=== PATIENT | male | born 1975 | race Hispanic/Latino ===

== ENCOUNTER 2020-07-15 09:58 | Emergency (ER) | payer SELFPAY ==
--- NOTE | 2020-07-15 10:37 | EDPHYS ---
Physician Documentation [facility] Name: Wilmer Dwyer Age: 44 yrs Sex: Male : 1975 Arrival Date: 07/15/2020 Time: 10:00 Bed 6 Private MD: ED Physician Dariusz Trujillo HPI: 07/15 10:36 This 44 yrs old Male presents to ER via Ambulatory with complaints of Arm Pain.kb 10:37 The patient or guardian complains of decreased range of motion, pain, tenderness. The kb complaints affect the left forearm. Context: The problem was sustained at home, resulted from a direct blow, from a heavy object. Onset: The symptoms/episode began/occurred 2 week(s) ago. Treatment prior to arrival includes: over the counter medications, NSAIDS. Modifying factors: The symptoms are alleviated by nothing. the symptoms are aggravated by movement. Associated signs and symptoms: Pertinent positives: decreased range of motion, pain. Severity of symptoms: At their worst the symptoms were moderate, in the emergency department the symptoms are unchanged. The patient has not experienced similar symptoms in the past. The patient has not recently seen a physician. Pt reports he hit his arm with a steel pipe 2 weeks ago. States the swelling got better, but the pain has been constant. Reports he felt a snap just below his elbow today. Pain with ROM. Historical: - Allergies: 10:09 No Known Allergies; sv - Immunization history:: Flu vaccine is up to date. - Social history:: Smoking status: Patient reports the use of cigarette tobacco products, smokes one-half pack cigarettes per day. ROS: 10:20 Constitutional: Negative for fever, chills, and weight loss, Cardiovascular: Negative kb for chest pain, palpitations, and edema, Respiratory: Negative for shortness of breath, cough, wheezing, and pleuritic chest pain, Abdomen/GI: Negative for abdominal pain, nausea, vomiting, diarrhea, and constipation, Skin: Negative for injury, rash, and discoloration, Neuro: Negative for headache, weakness, numbness, tingling, and seizure. 10:20 MS/extremity: Positive for decreased range of motion, pain, tenderness, of the left forearm. Exam: 10:20 Constitutional: This is a well developed, well nourished patient who is awake, alert, kb and in no acute distress. Head/Face: Normocephalic, atraumatic. Skin: Warm, dry with normal turgor. Normal color with no rashes, no lesions, and no evidence of cellulitis. Neuro: Awake and alert, GCS 15, oriented to person, place, time, and situation. Cranial nerves II-XII grossly intact. Motor strength 5/5 in all extremities. Sensory grossly intact. Cerebellar exam normal. Normal gait. 10:20 Respiratory: the patient does not display signs of respiratory distress, Respirations: normal. 10:20 Musculoskeletal/extremity: Extremities: grossly normal except: noted in the left forearm: decreased ROM, pain, tenderness, ROM: limited active range of motion due to pain, in the left forearm, Full ROM at joints without pain. Painful when rotating arm, Circulation is intact in all extremities. Sensation intact. Vital Signs: 10:07 Weight 83.46 kg; Height 5 ft. 6 in. (167.64 cm); sv 10:09 BP 145 / 97; Pulse 85; Resp 18; Temp 97.6; Pulse Ox 100% on R/A; ph 10:07 Body Mass Index 29.70 (83.46 kg, 167.64 cm) sv MDM: 10:03 Patient medically screened. kb 10:35 Data reviewed: vital signs, nurses notes. Data interpreted: Pulse oximetry: on room air kb is 100 %. Interpretation: normal. Counseling: I had a detailed discussion with the patient and/or guardian regarding: the historical points, exam findings, and any diagnostic results supporting the discharge/admit diagnosis, radiology results, the need for outpatient follow up, a orthopedic surgeon, to return to the emergency department if symptoms worsen or persist or if there are any questions or concerns that arise at home. 07/15 10:07 Order name: Forearm Left XRAY kb 07/15 10:36 Order name: Sling; Complete Time: 10:54 kb Administered Medications: No medications were administered Disposition: 12:09 Co-signature as Attending Physician, Dariusz Trujillo MD. rn Disposition: 07/15/20 10:36 Discharged to Home. Impression: Pain in left forearm. - Condition is Stable. - Discharge Instructions: Musculoskeletal Pain. - Prescriptions for Diclofenac Sodium 75 mg Oral Tablet, Delayed Release (E.C.) - take 1 tablet by ORAL route 2 times per day As needed; 30 tablet. - Medication Reconciliation Form, Thank You Letter, Antibiotic Education, Prescription Opioid Use, Work release form form. - Follow up: Emergency Department; When: As needed; Reason: Worsening of condition. Follow up: Private Physician; When: 2 - 3 days; Reason: Recheck today's complaints, Continuance of care, Re-evaluation by your physician. Signatures: Dispatcher [employer] ED Margaret Reza, KHOI-C TRACK LAYING SUPERVISOR-Shadb Sol Stuart RN Dariusz Tong MD MD rn Hall, Patricia, RN RN ph Corrections: (The following items were deleted from the chart) 10:54 10:36 07/15/2020 10:36 Discharged to Home. Impression: Pain in left forearm. Condition ph is Stable. Forms are Work release form, Medication Reconciliation Form, Thank You Letter, Antibiotic Education, Prescription Opioid Use. Follow up: Emergency Department; When: As needed; Reason: Worsening of condition. Follow up: Private Physician; When: 2 - 3 days; Reason: Recheck today's complaints, Continuance of care, Re-evaluation by your physician. kb
--- NOTE | 2020-07-15 10:37 | ER ---
Nurse's Notes [facility] Name: Wilmer Dwyer Age: 44 yrs Sex: Male : 1975 Arrival Date: 07/15/2020 Time: 10:00 Bed 6 Private MD: Diagnosis: Pain in left forearm Presentation: 07/15 10:07 Chief complaint: Patient states: had a solid piece of steel hit him on his left arm 2 sv wks ago. c/o pain and unable to car icer objects with his left hand. Coronavirus screen: Client denies travel out of the [place] in the last 14 days. At this time, the client does not indicate any symptoms associated with coronavirus-19. Ebola Screen: No symptoms or risks identified at this time. Risk Assessment: Do you want to hurt yourself or someone else? Patient reports no desire to harm self or others. Onset of symptoms was June 2020. 10:07 Method Of Arrival: Ambulatory sv 10:07 Acuity: JUAN RAMON 4 sv 10:12 Initial Sepsis Screen: Does the patient meet any 2 criteria? No. Patient's initial ph sepsis screen is negative. Does the patient have a suspected source of infection? No. Patient's initial sepsis screen is negative. Historical: - Allergies: 10:09 No Known Allergies; sv - Immunization history:: Flu vaccine is up to date. - Social history:: Smoking status: Patient reports the use of cigarette tobacco products, smokes one-half pack cigarettes per day. Screenin:10 Abuse screen: Denies threats or abuse. Nutritional screening: No deficits noted. tw2 Tuberculosis screening: No symptoms or risk factors identified. Fall Risk None identified. Assessment: 10:10 General: Appears in no apparent distress. comfortable, Behavior is calm, cooperative, ph appropriate for age. Pain: Complains of pain in dorsal aspect of left forearm. Neuro: Level of Consciousness is awake, alert, obeys commands, Oriented to person, place, time, situation. Cardiovascular: Capillary refill < 3 seconds in bilateral fingers Patient's skin is warm and dry. Respiratory: Airway is patent Respiratory effort is even, unlabored, Respiratory pattern is regular, symmetrical. Derm: Skin is intact, is healthy with good turgor, Skin is pink, warm \T\ dry. Musculoskeletal: Circulation, motion, and sensation intact. Range of motion: intact in all extremities. 10:20 Reassessment: xray at bedside at this time. tw2 Vital Signs: 10:07 Weight 83.46 kg; Height 5 ft. 6 in. (167.64 cm); sv 10:09 BP 145 / 97; Pulse 85; Resp 18; Temp 97.6; Pulse Ox 100% on R/A; ph 10:07 Body Mass Index 29.70 (83.46 kg, 167.64 cm) sv ED Course: 10:00 Patient arrived in ED. rg4 10:02 Margaret Reza FNP-C is PHCP. kb 10:02 Dariusz Trujillo MD is Attending Physician. kb 10:08 Bed in low position. Call light in reach. Pulse ox on. NIBP on. tw2 10:09 Triage completed. sv 10:09 Jeniffer Gardiner, RN is Primary Nurse. ph 10:09 Arm band placed on Patient placed in an exam room, on a stretcher. sv 10:27 Forearm Left XRAY In Process Unspecified. EDMS 10:54 No provider procedures requiring assistance completed. Patient did not have IV access ph during this emergency room visit. Sling applied to left arm. Administered Medications: No medications were administered Outcome: 10:36 Discharge ordered by MD. kb 10:54 Discharged to home ambulatory. ph 10:54 Condition: good 10:54 Discharge instructions given to patient, Instructed on discharge instructions, follow up and referral plans. medication usage, Demonstrated understanding of instructions, follow-up care, medications, Prescriptions given X 1. 10:54 Patient left the ED. ph Signatures: Dispatcher [employer] EDDE Margaret Reza FNP-C FNP-Ckb [place], Stephanie RN SHYANN Jeniffer Gardiner, RN RN ph Latrice Sawyer, RN RN [id number] Marimar Shipley rg4
--- NOTE | 2020-07-15 11:39 | RAD REPORT ---
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 FINDINGS: No fracture is identified. There is no dislocation or periosteal reaction noted. No foreign body or other soft tissue abnormality. IMPRESSION: Negative left forearm examination.
[2020-07-17 22:50] VITALS: BP 145/97; TEMP 97.6; O2SAT 100
== END 2020-07-15 10:54 | disposition home or self-care (01) ==
LOC: ER 09:58
DX: M79.632 Pain in left forearm (principal); F17.210 Nicotine dependence, cigarettes, uncomplicated
CPT/HCPCS: 99284

== ENCOUNTER 2021-09-05 12:50 | Emergency (ER) | payer SELFPAY ==
--- OUTSIDE RECORDS SUMMARY | 2021-09-05 12:53 | XMS REPORT | Continuity of Care Document ---
:1975 Author Organization [facility] t Address [address] [place] [address] Care Team Providers Name Role Phone Asked, Pcp Primary Care Physician Unavailable Eladio Hoffman Attending Clinician Unavailable Yessica English Attending Clinician Unavailable Physician, Primary or Family Admitting Clinician Unavaildelonte e Payers Payer Name Policy Type Policy Number Effective Date Expiration Date S ource Problems This patient has no known problems. Allergies, Adverse Reactions, Alerts Allergy Allergy Status Severity Reaction(s) Onset Inactive Treating Comm ents Source Name Type Date Date Clinician No Known DA Active U 2020-07 [facility] [place] [facility] 00:00: [address] No Known DA Active U [facility] 9 [facility] s 00:00: [address] No Known DA Active U 2014-07 [facility] 1-13 [place] [facility] 00:00: [address] Social History Social Habit Start Date Stop Date Quantity Comments Source History of tobacco Cigarette Smoker [facility] use Hospital Cigarettes smoked 2019-08-05 2019-08-[address] current (pack per 00:00:00 00:00:00 Hospita l day) - Reported Tobacco use and 2019-08-05 2019-08-05 Never used [facility] exposure 00:00:00 00:00:00 Hospital Alcohol intake 2019-08-05 2019-08-05 Current drinker Metho dist 00:00:00 00:00:00 of alcohol Hospital (finding) Tobacco Comment 2019-08-05 2019-08-05 "only 1 pack on Meth odist 00:00:00 00:00:00 the weekends" Hospital Alcohol Comment 2019-08-05 2019-08-05 social drinker Mariza dist 00:00:00 00:00:00 Hospital Sex Assigned At [birth year] [facility] 00:00:00 00:00:00 Hospital Smoking Status Start Date Stop Date Source Current some day smoker 2019-08-05 00:00:00 [facility] Medications Ordered Filled Start Stop Current Ordering Indication Dosage Frequency Signature Comments Components Source Medication Medication Date Date Medication? Clinician (SIG) Name Name No known No Methodi medications [facility]osp[facility] Procedures This patient has no known procedures. Plan of Care Planned Activity Planned Date Details Comments Source Future Scheduled Test COVID-19 VACCINE (1) [facility] [code = COVID-19 VACCINE (1)] Future Scheduled Test Hepatitis C screening [facility] (procedure) [code = 321565468] Future Scheduled Test INFLUENZA VACCINE [facility] [code = INFLUENZA VACCINE] Encounters Start End Encounter Admission Attending Care Care Encounter Source Date/Time Date/Time Type Type Clinicians Facility Department ID 2021-04-28 Inpatient [facility] [id number] [facility] 23:48:00 [id number] [facility] 2021-04-28 2021-04-29 Emergency [facility] [id number] [facility] 23:48:00 04:24:[address] [facility] 2021-04-09 2021-04-09 Emergency EM Am[place], [facility] ER [id number] [facility] 00:28:00 03:30:00 Andrea [id number] [facility] 2021-04-09 2021-04-09 Emergency EM [place], [facility] ER [id number] [id number] [facility] 00:28:00 03:30:00 Andrea [id number] [facility] 2021-04-09 2021-04-09 [id number] [facility] 00:28:00 03:30:00 Andrea Morrison [facility] Results Test Description Test Time Test Comments Results Result Comments Source TROPONIN-I 2021-04-29 03:25:00 Test Item Value Reference Range Interpretation Comme nts TROPONIN-I (test code = 5.9 pg/mL 3.0-78.5 N An e levated troponin value alone is TROPI) not sufficient todiagnose a myocardial infa rction. Rather, the patient'sclinic al presentation (history, physi kun exam) and ECGshould be us ed in conjuction with troponin in the diagnosticevaluation of suspected my ocaridal infarction. A serialsampling protocol is recommended to facilitate heidentificatio n of temporal changes in troponin lev elscharacteristic of AR. - CT ABD PELVIS [id number] 03:24:[address] [facility] [place] : 1975 Sex: M [place]: [facility] [address]: REG Name: CHANTAL HUBER [facility] : 1975 Age/S: 45/M [address] Masha [facility] Unit #: [id number] Loc: [place], [place] [address] Phys: Pradeep Hoffman MD Acct: [id number] Dis Date: S tatus: REG ER PHONE #: [phone] Exam Date: 04/29/2021312 FAX #: [phone] Reason: Periumbilical pain, concern for hernia CTDI: DLP: Automated exposure control, iterative reconstruction technique, and/oradjustment of mA and/or kV according to patient's size was utilized fooptimum radiation dose reduction. EXAMS: CPT CODE: [id number] CT ABD PELVIS W/CONT 77884 EXAM: - CT ABDPELVIS W/CONT HISTORY: Abdominal pain. TECHNIQUE: Axial tomograms through the abdomen and pelvis were obtained after intravenous contrast. Coronal and sagittal reformatted images are provided. This exam was performed according to our departmental dose-optimization program, which includes automated exposure control, adjustment of the mA and/or kV according to patient size and/or use of iterative reconstruction technique. COMPARISON: August 15, 2015. FINDINGS: The visualized lung bases are clear. There is fatty infiltration of the liver. The liver, spleen, pancreas, adrenal glands and kidneys demonstrate no significant abnormalities. Some thickening of the wall of the gastri c antrum could be due to peristalsis normal variant. The appendix has a normal appearance. The bowel is unremarkable. There is no adenopathy or free fluid. There is no evidence of abdominal wall hernia. There is no acute osseous abnormality.IMPRESSION: No acute abnormality. Other findings as above. PAGE 1 Signed Report (CONTINUED) [place]: [address]: REG [facility] 1975 Age/S: 45/M [address] Flanagan [facility] Unit #: [id number] Loc: [place], [place] [address] Phys: Pradeep Hoffman MD Acct: [id number] Dis Date: Status: REG ER PHONE #: [phone] Exam Date: 04/29/2021312 FAX #: [phone] Reason: Periumbilical pain, concern for hernia CTDI: DLP: Automated exposure control, iterative reconstruction technique, and/oradjustment of mA and/or kV according to patient's size was utilized fooptimum radiation dose reduction. EXAMS: CPT CODE: [id number] CT ABD PELVIS W/CONT 78475 <Continued> at 0324 Reported and signed by: ADRIANA MOULTON MD Facility ACR Accreditation for CT - February 2012 CC: Pradeep Hoffman MD Technologist: ROGER MCCANN(R) Transcribed Date/Time/By: 04/29/2021 (032) : By: [email or web address] Orig Print D/T: S: 04/29/2021 (0327) PAGE 2 Signed ReportPROTHROMBIN [id number] 03:16:00 Test Item Value Reference Interpretation Comments Range PROTHROMBIN TIME 10.3 SECONDS 9.1-12.0 N PATIENT (test code = PTP) INTERNATIONAL 1.05 0.93-1.2 N Recommended Th erapeutic NORMAL RATIO (test PT Ratios For Oral code = INR) AnticoagualantT herapy. CONDITION INT'L NORMALIZED PT R --------- ------ Prophylaxis of venous thrombosis 2.0 - 3.0in hig h risk medical or surgicalpatient s, treatment of venousthrombosi s, prevention of e mbolism. Prevention of r ecurrent embolism, 3.0 - 4.5or treatme nt of patients with mechanicalprost hetic heart valves. IS THE PATIENT ON ANY ANTICOAGULANTS? NTHROMBOPLASTIN TIME [id number] 03:16:00 Test Item Value Reference Range Interpretation Comments THROMBOPLASTIN TIME PARTIAL 27.0 SECONDS 23.0-32.0 N (test code = PTT) IS THE PATIENT ON ANY ANTICOAGULANTS? NUA RFLX MICR CULT IF [id number] 03:01:00 Test Item Value Reference Range Interpretation Comments UA COLOR (test code = COLU) Light-Yellow YELLOW UA APPEARANCE (test code = Clear CLEAR APPU) UA GLUCOSE DIPSTICK (test Normal NORMAL code = DGLUU) UA BILIRUBIN DIPSTICK (test Negative NEGATIVE code = BILU) UA KETONE DIPSTICK (test Negative NEGATIVE code = KETU) UA SPECIFIC GRAVITY (test 1.019 1.000-1.032 N code = SGU) UA BLOOD DIPSTICK (test code Negative NEGATIVE = OMAIRA) UA PH DIPSTICK (test code = 6.5 5.0-9.0 N MAVERICK) UA PROTEIN DIPSTICK (test Negative NEGATIVE code = PROU) UA UROBILINIOGEN DIPSTICK Normal NORMAL (test code = URO) UA NITRITE DIPSTICK (test Negative NEGATIVE code = DELONTE) UA LEUKOCYTE ESTERASE Negative NEGATIVE DIPSTICK (test code = LEUU) UA WBC (test code = WBCU) 0-2 0-5 UA CULTURE NEEDED? (test Criteria not met code = UACULT) SOURCE: URINESPECIMEN DESCRIPTION: CMCIndication for culture: Flank PainUA [id number] 03:01:00 Test Item Value Reference Range Interpretation Comments UA RBC (test code = RBCU) 0-2 0-5 UA EPITHELIAL CELLS (test code = EPIU) 0-2 0-10 UA MUCUS (test code = MUCU) OCC NONE-FEW SOURCE: URINESPECIMEN DESCRIPTION: CMCIndication for culture: Flank Pain Coronavirus 2019 nCoV [id number] 01:45:00 Test Item Value Reference Interpretation Comments Range Coronavirus 2019 Presumptive Presump.Neg Presumptive Positive nCoV Bedside Negative results are ind icative (test code = of the presence of COVNONPUIBED) SARS-CoV-2 RNA , clinical correlation wit h patient historyand othe r diagnostic info rmation is necessary to determinepatien t infection statu s. Positive result s do not rule outbacteri al infection or co-infection wi th other viruses. Presum ptive Negative result s do not preclude KYVP-NoZ-3peipf tion and should not be u sed as the sole basis forpatient kaykay gement decisions. Nega tive must be treated aspr esumptive and, if inconsi stent with clinical s igns andsymptoms or necessary for patient man agement, should betested with an alternative mol ecular assay. The ID NOW COVID-19 test i s intended for us e by medicalprofessi onals or trained operato rs who are proficient inperforming te sts using the ID NOW Inst rument. The ID NOWCOVID -19 test is only used un fernie the Food and DrugAdminstrati on's Emergency Use Authorization. LOT # [id number].DATE 06/09/21PROCEDURAL CONTROL ACCEPTABLE Y/N YBASIC METABOLIC [id number] 01:39:00 Test Item Value Reference Range Interpretation Comments SODIUM (test code = 139 mmol/L 136-145 N NA) POTASSIUM (test code = 4.0 mmol/L 3.5-5.1 N K) CHLORIDE (test code = 110 mmol/L 98-113 N CL) CARBON DIOXIDE (test 27 mmol/L 21-32 N code = CO2) GLUCOSE (test code = 106 mg/dL 65-99 H GLU) BLOOD UREA NITROGEN 15 mg/dL 7-18 N (test code = BUN) GLOMERULAR FILTRATION 78 Report ing units: RATE (test code = GFR) ml/mi n/1.73m\\S\\2 (Modified MDRD Formula)If age < 18 years, GFR is n ot applicable. KD/ DOQI Clinical Practi ce Guidelines: Sta ge 1: Kidney damage w/normal or inc reased GFR >90Stag e 2: Kidney damage w /mild decrease in GFR 60 - 89Stage 3: Moderate decrea se in GFR 30 - 59Stage 4: Severe decrease in GFR 15 - 29Stage 5: Kidney failure < 15 (or dialysis) CREATININE (test code 1.1 mg/dL 0.6-1.0 H = CREAT) CALCIUM (test code = 8.4 mg/dL 7.8-10.9 N CA) HEPATIC FUNCTION [id number] 01:39:00 Test Item Value Reference Range Interpretation Comments TOTAL PROTEIN (test 7.5 g/dL 6.4-8.2 N code = PROT) ALBUMIN (test code = 4.0 g/dL 3.4-5.0 N ALB) GLOBULIN (test code = 3.5 gm/dL 2.3-3.5 N GLOB) ALBUMIN/GLOBULIN 1.1 1.5-2.2 L RATIO (test code = A/G) BILIRUBIN TOTAL (test 0.4 mg/dL 0.0-1.1 N code = BILT) BILIRUBIN DIRECT 0.1 mg/dL 0.05-0.3 N (test code = BILD) BILIRUBIN INDIRECT 0.3 mg/dL 0.0-0.6 N (test code = BILIND) SGOT/AST (test code = 20 U/L 15-37 N Report ing units: AST) International U nits/L SGPT/ALT (test code = 34 U/L 10-30 H Report ing units: ALT) International U nits/L ALKALINE PHOSPHATASE 66 U/L 45-117 N TOTAL (test code = ALKP) [id number] 01:39:00 Test Item Value Reference Range Interpretation Comments LIPASE (test code = 102 U/L 73-393 N Reportin g units: LIP) International U nits/L CBC W/AUTO [id number] 01:09:00 Test Item Value Reference Range Interpretation Comments WHITE BLOOD CELL (test code = 8.5 K/mm3 4.8-10.8 N WBC) RED BLOOD CELL (test code = RBC) 3.91 M/mm3 4.2-5.4 L HEMOGLOBIN (test code = HGB) 13.4 gm/DL 13.5-17.5 L HEMATOCRIT (test code = HCT) 39.7 % 37.1-51.5 N MEAN CELL VOLUME (test code = 101.5 fL 81-99 H MCV) MEAN CELL HGB (test code = MCH) 34.3 pg 27-31 H MEAN CELL HGB CONCETRATION (test 33.8 gm/dL 33-37 N code = MCHC) RED CELL DISTRIBUTION WIDTH (test 12.1 % 11.5-14.5 N code = RDW) PLATELET COUNT (test code = PLT) 225 X10(3) 130-400 N MEAN PLATELET VOLUME (test code = 9.1 fL 9.4-12.4 L MPV) NEUTROPHIL % (test code = NT%) 61.6 % 51.5-79.7 N IMMATURE GRANULOCYTE % (test code 0.600 % 0.108-0.322 H = IG%) LYMPHOCYTE % (test code = LY%) 25.7 % 14-40 N MONOCYTE % (test code = MO%) 10.2 % 4.0-10.2 N EOSINOPHIL % (test code = EO%) 1.4 % 0-4.1 N BASOPHIL % (test code = BA%) 0.5 % 0.1-0.7 N NUCLEATED RBC % (test code = 0.0 % 0-0 N NRBC%) NEUTROPHIL # (test code = NT#) 5.2 K/mm3 2.5-8.6 N IMMATURE GRANULOCYTE # (test code 0.050 K/mm3 0.0052-0.0224 H = IG#) LYMPHOCYTE # (test code = LY#) 2.2 K/mm3 1.1-3.6 N MONOCYTE # (test code = MO#) 0.9 K/mm3 0.3-0.9 N EOSINOPHIL # (test code = EO#) 0.12 # 0.0-0.4 N BASOPHIL # (test code = BA#) 0.04 K/mm3 0.0-0.2 N NUCLEATED RBC # (test code = 0.00 K/mm3 0.00-0.20 N NRBC#) - XR CHEST 1 [id number] 01:06:[address] [facility] [place] : 1975 Sex: M FAX: Pradeep Hoffman [phone] Camps: [address] St: REG Name: CHANTAL HUBER LU[facility] : 1975 Age/S: 45/M [address] Masha Geoff Unit #: [id number] Loc: [place], [place] [address] Phys: Pradeep Hoffman MD Acct: [id number] Dis Date: atus: REG ER PHONE #: [phone] Exam Date: 04/29/2021103 FAX #: [phone] Reason: Abdominal pain EXAMS: CPT CODE: [id number] XR CHEST 1 V 03147 EXAM: - XR CHEST 1 V HISTORY: Abdominal pain. COMPARISON: None available time of interpretation. FINDINGS: Single AP view of the chest is provided. Heart size and vascularity are within normal limits. There is no evidence of a focal consolidation. There is no pleural effusion or pneumothorax. There is no definite acute osseous abnormality. IMPRESSION:No radiographic evidence of acute cardiopulmonary process. at 0106 Reported and signed by: ADRIANA MOULTON MD CC: Pradeep Hoffman MD Technologist: Nadeen Caceres, RT(R)(ARRT) Transcribed Date/Time/By: 04/29/2021 (105) :[email or web address] Orig Print D/T: S: 04/29/2021 (109) Automated exposure control, iterative reconstruction technique, and/oradjustment of mA and/or kVaccording to patient's size was utilizedfor optimum radiation dose reduction. PAGE 1 Signed [id number] 03:12:00 Test Item Value Reference Range Interpretation Comments TROPONIN-I (test < 0.017 NG/ML 0.000-0.060 N The lower limit for code = TROPI) Trop-I has bee n changed from <0.04. - The use of serial sampl ing and testing protoco l is a recommended pra ctice.- An elevated tro ponin level alone is often not sufficient for diagnosis of my ocardial infarction.Resu lts of this assay meth od may be falsely depr essed orelevated if p atient is taking high doses of Biotin. BASIC METABOLIC [id number] 01:31:00 Test Item Value Reference Range Interpretation Comments SODIUM (test code = 139 MMOL/L 133-145 N NA) POTASSIUM (test code = 3.4 MMOL/L 3.6-5.2 L K) CHLORIDE (test code = 104 MMOL/L 100-108 N CL) CARBON DIOXIDE (test 25 MMOL/L 22-32 N code = CO2) GLUCOSE (test code = 105 MG/DL 65-99 H Results of this assay GLU) method may be f alsely depressed orele vated if patient is t aking sulfasalazine. BLOOD UREA NITROGEN 17 MG/DL 6-20 N (test code = BUN) GLOMERULAR FILTRATION 75 63-147 N Report ing units: RATE (test code = GFR) mL/mi n/1.73m\\S\\2 (Modified MDRD Formula) CREATININE (test code 1.08 MG/DL 0.60-1.00 H = CREAT) CALCIUM (test code = 8.4 MG/DL 8.7-10.5 L CA) [id number] 01:31:00 Test Item Value Reference Range Interpretation Comments TROPONIN-I (test < 0.017 NG/ML 0.000-0.060 N The lower limit for code = TROPI) Trop-I has bee n changed from <0.04. - The use of serial sampl ing and testing protoco l is a recommended pra ctice.- An elevated tro ponin level alone is often not sufficient for diagnosis of my ocardial infarction.Resu lts of this assay meth od may be falsely depr essed orelevated if p atient is taking high doses of Biotin. CBC W/AUTO [id number] 01:22:00 Test Item Value Reference Range Interpretation Comments WHITE BLOOD CELL (test code = 7.01 x10 3/uL 4.80-10.80 N WBC) RED BLOOD CELL (test code = 3.86 x10 6/uL 4.7-6.1 L RBC) HEMOGLOBIN (test code = HGB) 13.2 G/DL 14.0-17.0 L HEMATOCRIT (test code = HCT) 37.6 % 42-52 L MEAN CELL VOLUME (test code = 97.4 FL 80-94 H MCV) MEAN CELL HGB (test code = MCH) 34.2 PG 27-31 H MEAN CELL HGB CONCENTRATION 35.1 G/DL 33-37 N (test code = MCHC) RED CELL DISTRIBUTION WIDTH 12.1 % 11.5-14.5 N (test code = RDW) PLATELET COUNT (test code = 207 x10 3/uL 150-450 N PLT) MEAN PLATELET VOLUME (test code 9.0 FL 7.4-10.4 N = MPV) NEUTROPHIL % (test code = NT%) 50.4 % 42-86 N IMMATURE GRANULOCYTE % (test 0.9 % 0.0-2.0 N code = IG%) LYMPHOCYTE % (test code = LY%) 35.2 % 24-44 N MONOCYTE % (test code = MO%) 11.3 % 0.0-4.0 H EOSINOPHIL % (test code = EO%) 1.9 % 0.0-2.7 N BASOPHIL % (test code = BA%) 0.3 % 0.0-0.5 N NUCLEATED RBC % (test code = 0.0 % 0.0-0.0 N NRBC%) NEUTROPHIL # (test code = NT#) 3.54 x10 3/uL 1.8-7.7 N IMMATURE GRANULOCYTE # (test 0.06 x10 3/uL 0.00-0.03 H code = IG#) LYMPHOCYTE # (test code = LY#) 2.47 x10 3/uL 1.0-4.8 N MONOCYTE # (test code = MO#) 0.79 x10 3/uL 0.0-0.8 N EOSINOPHIL # (test code = EO#) 0.13 x10 3/uL 0.0-0.5 N BASOPHIL # (test code = BA#) 0.02 x10 3/uL 0.0-0.2 N NUCLEATED RBC # (test code = 0.0 X10 3/uL 0.0-0.2 N NRBC#) - XR CHEST 2 [id number] 01:03:00 [facility] 1975 Sex: M Patient Name: CHANTAL HUBER Unit No: [id number] EXAMS: CPT CODE: [id number] XR CHEST 2 V 25000 Reason: cp/palp Exam: Chest 2 views Location: H 12 History: cp/palp Comparison: None. Findings: The lungs are clear. No infiltrate or effusion is seen. The pulmonary vasculature is normal. The heart size is normal. The mediastinal silhouette is unremarkable. The bony thorax is intact. Impression: No acute disease. at 0103 Reported and signed by: Pardeep Chapman MD CC: Andrea English DO; Sendy DEL ANGEL Technologist: Geno Eckert RT Trscrpt Dt/ (010)t.FC Orig Print D/T: S: 04/09/2021 (010) [facility] NAME: CHANTAL HUBER [address] [facility] PHYS: BOUDA.Ricco - [place] [address] : 1975 AGE: 45 SEX: M LOC: DmitriyLAVONNER PHONE #: [phone] EXAM DATE: 04/09/2021 STATUS: DEP ER FAX #: RAD NO: DC Dt: PAGE 1 Signed Report- XR CHEST 2 [id number] 01:03:00[facility] 1975 Sex: M Patient Name: CHANTAL HUBER Unit No: [id number] EXAMS: CPT CODE: [id number] XR CHEST 2 V 52180 Reason: cp/palp Exam: Chest 2 views Location: H 12 History: cp/palp Comparison: None. Findings: The lungs are clear. No infiltrate or effusion is seen. The pulmonary vasculature is normal. The heart size is normal. The mediastinal silhouette is unremarkable. The bony thorax is intact. Impression: No acute disease. at 0103 Reported and signed by: Pardeep Chapman MD CC: Andrea English DO; Sendy DEL ANGEL Technologist: Geno LOO Trscrpt Dt/ (102)t.FC Orig Print D/T: S: 04/09/2021 (010) [facility] NAME: CHANTAL HUBER [address] [facility] PHYS: [place]DA. - [place] [address] : 1975 AGE: 45 SEX: M LOC: JOAN PHONE #: [phone] EXAM DATE: 04/09/2021 STATUS: PRE ER FAX #: RAD NO: DC Dt: PAGE 1 Signed Report- XR ELBOW 3+V [id number] 16:13:00[facility] [place] [place] : 1975 Sex: M FAX: Aliza Cash [phone] Camps: ER St: UNK FAX: Lloyd Cash DO [phone] FAX: Analilia Curiel [phone] Name: CHANTAL HUBER [facility] : 1975 Age/S: 40/M [address] Mihir Flanagan [facility] Unit #: [id number] Loc: [place], [place] [address] Phys: Heike Cash Acct: [id number] Dis Date: Status: UNK PHONE #: [phone] Exam Date: FAX #: [phone] Reason: PAIN/CONTUSION EXAMS: CPT CODE: [id number] XR ELBOW 3+[place] [address] LEFT ELBOW RADIOGRAPHS INDICATION: PAIN/CONTUSION, COMPARISON: NONE. FINDINGS: AP, oblique and lateral radiographs of the left elbow are obtained. No acute fracture or dislocation is seen. No evidence of a joint effusion. The joint spaces appear intact. IMPRESSION: No acute osseous abnormality. at 1613 Reported and signed by: Yakelin Denney MD CC: Aliza Cash; Lloyd Cash DO; Analilia DEL ANGEL Technologist: IVON MYERS (R) ARRT Transcribed Date/Time/By: 04/25/2016 (1613) :[email or web address] Orig Print D/T: S: 04/25/2016 (4896) Automated exposure control, iterative reconstruction technique, and/oradjustment of mA and/or kV according to patient's size was utilizedfor optimum radiation dose reduction. PAGE 1 Signed Report- XR CHEST 1 [id number] 21:48:[address] [facility] [place] [place] : 1975 Sex: M FAX: Jonah Apple MD [phone] Camps: ER St: UNK Name: CHANTAL HUBER [facility] : 1975 Age/S: 39/M [address] Mihir Flanagan [facility] Unit #: [id number] Loc: [place], [place] [address] Phys: Jonah Apple MD Acct: [id number] Dis Date: St atus: UNK PHONE #: [phone] Exam Date: 03/15/20152141 FAX #: [phone] Reason: sob EXAMS: CPT CODE: [id number] XR CHEST 1 V 03373 HISTORY: 39M. Shortness of breath. Technique: Chest single view. Comparison none. FINDINGS: The cardiomediastinal borders are within normal limits. No acute lung or pleural disease is seen. The osseous structures are unremarkable. IMPRESSION: No acute abnormality identified. Read By: Anastasiya Morel - 03/15/2015 9:48:00 PM Approved By: Anastasiya Morel - 03/15/2015 9:48:00 PM at 2148 Reportedand signed by: Anastasiya Morel MD CC: Jonah Apple MD Technologist: IVON MYERS RT (R) ARRT Transcribed Date/Time/By: 03/15/2015 (1913) :RAD.VR Orig Print D/T: S: 03/15/2015 (6332) Automated exposure control, iterative reconstruction technique, and/oradjustment of mA and/or kV according to patient's size was utilizedfor optimum radiation dose reduction. PAGE 1 Signed Report
--- NOTE | 2021-09-05 14:34 | RAD REPORT ---
EXAM DESCRIPTION: RAD - Chest Pa And Lat (2 Views) - 09/05/2021 2:23 pm CLINICAL HISTORY: DYSPNEA COMPARISON: No comparisons FINDINGS: Lines: None. Lungs: No evidence of edema or pneumonia. Pleural: No significant pleural effusions or pneumothorax. Cardiac: The heart size is within normal limits. Bones: No acute fractures. Other: IMPRESSION: No acute cardiopulmonary disease.
--- NOTE | 2021-09-05 15:06 | RAD REPORT ---
EXAM DESCRIPTION: RAD - Ribs Left - 09/05/2021 2:22 pm CLINICAL HISTORY: PAIN COMPARISON: Chest Pa And Lat (2 Views) dated 09/05/2021 FINDINGS: No displaced or healing rib fractures are identified. No pneumothorax. Heart size is emory l. The lungs are clear. Visualized upper abdomen is unremarkable. IMPRESSION: No displaced rib fractures identified. Nondisplaced and/or minimally displaced rib fract ures may not be apparent on initial radiography. No acute cardiopulmonary disease.
--- NOTE | 2021-09-05 15:10 | ER ---
Nurse's Notes [facility] Name: Wilmer Dwyer Age: 45 yrs Sex: Male : 1975 Arrival Date: 09/05/2021 Time: 12:51 Bed 11 Private MD: Diagnosis: Contusion of left front wall of thorax Presentation: 09/05 13:11 Chief complaint: Patient states: on Friday pt fell onto Left side of ribs on metal ab2 stairs. States SOB and pain with deep inhalation. Coronavirus screen: Vaccine status: Patient reports receiving the 2nd dose of the covid vaccine. Client denies travel out of the [place] in the last 14 days. Ebola Screen: Patient negative for fever greater than or equal to 101.5 degrees Fahrenheit, and additional compatible Ebola Virus Disease symptoms. Initial Sepsis Screen: Does the patient meet any 2 criteria? No. Patient's initial sepsis screen is negative. Does the patient have a suspected source of infection? No. Patient's initial sepsis screen is negative. Risk Assessment: Do you want to hurt yourself or someone else? Patient reports no desire to harm self or others. Onset of symptoms was September 01, 2021. 13:11 Method Of Arrival: Ambulatory ab2 13:11 Acuity: JUAN RAMON 3 ab2 Triage Assessment: 13:13 General: Appears in no apparent distress. uncomfortable, Behavior is calm, cooperative. ab2 Pain: Complains of pain in left side off ribs Pain currently is 10 out of 10 on a pain scale. Pain began x 4 days. Respiratory: Reports pain with respiration Airway is patent Respiratory effort is even, unlabored. Historical: - Allergies: 13:13 No Known Allergies; ab2 - Home Meds: 13:13 None [Active]; ab2 - PMHx: 13:13 None; ab2 - PSHx: 13:13 None; ab2 - Immunization history:: Client reports receiving the 2nd dose of the Covid vaccine. - Social history:: Smoking status: Patient reports the use of cigarette tobacco products, denies chronic smoking, but will smoke occasionally. Screenin:15 Abuse screen: Denies threats or abuse. Denies injuries from another. Nutritional ab2 screening: No deficits noted. Tuberculosis screening: No symptoms or risk factors identified. Fall Risk None identified. Assessment: 13:13 General: Appears in no apparent distress. comfortable, Behavior is calm, cooperative, ab2 appropriate for age. Pain: Complains of pain in diaphragm and left lateral anterior chest Pain does not radiate. Pain currently is 8 out of 10 on a pain scale. Quality of pain is described as sharp. Neuro: No deficits noted. 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 Gait is steady, Speech is normal, Facial symmetry appears normal. Cardiovascular: No deficits noted. Denies chest pain, Heart tones S1 S2 present Patient's skin is warm and dry. Respiratory: Airway is patent Respiratory effort is even, unlabored, Respiratory pattern is regular, Breath sounds are clear bilaterally. GI: No deficits noted. No signs and/or symptoms were reported involving the gastrointestinal system. Abdomen is round non-distended. : No deficits noted. No signs and/or symptoms were reported regarding the genitourinary system. EENT: No deficits noted. No signs and/or symptoms were reported regarding the EENT system. Derm: Skin is intact, is healthy with good turgor. Musculoskeletal: Reports pain in diaphragm and left lateral anterior chest. 13:46 Reassessment: Patient appears in no apparent distress at this time. Pt ambulated to ab2 bathroom with no assistance. Awaiting results for disposition at this time. Patient denies any needs at this time. Vital Signs: 13:11 BP 132 / 88; Pulse 73; Resp 17; Temp 97.6; Pulse Ox 98% ; Weight 83.91 kg; Height 5 ft. ab2 6 in. (167.64 cm); Pain 10/10; 14:25 BP 141 / 79; Pulse 76; Resp 16; Pulse Ox 99% on R/A; ab2 15:31 BP 127 / 79; Pulse 71; Resp 16; Pulse Ox 99% on R/A; ab2 13:11 Body Mass Index 29.86 (83.91 kg, 167.64 cm) ab2 ED Course: 12:51 Patient arrived in ED. as 13:06 [facility]. kb 13:06 Dayron Nelson MD is Attending Physician. kb 13:13 Triage completed. ab2 13:13 Tian Huynh is Primary Nurse. ab2 13:13 Arm band placed on. ab2 13:15 Patient has correct armband on for positive identification. Bed in low position. Call ab2 light in reach. Side rails up X2. 13:15 No provider procedures requiring assistance completed. ab2 14:17 Chest Pa And Lat (2 Views) XRAY In Process Unspecified. EDMS 14:17 Ribs Left XRAY In Process Unspecified. EDMS 15:32 Patient did not have IV access during this emergency room visit. ab2 Administered Medications: No medications were administered Outcome: 15:09 Discharge ordered by . kb 15:31 Discharged to home ambulatory. ab2 15:31 Condition: good 15:31 Discharge instructions given to patient, Instructed on discharge instructions, follow up and referral plans. medication usage, Demonstrated understanding of instructions, follow-up care, medications, Prescriptions given X 2. 15:32 Patient left the ED. ab2 Signatures: Dispatcher [employer] EDMargaret Plasencia, LARS NEWBYP-Maki Soto Alexis ab2
--- NOTE | 2021-09-05 15:10 | EDPHYS ---
Physician Documentation [facility] Name: Wilmer Dwyer Age: 45 yrs Sex: Male : 1975 Arrival Date: 09/05/2021 Time: 12:51 Bed 11 Private MD: ED Physician Dayron Nelson HPI: 09/05 15:28 This 45 yrs old Male presents to ER via Ambulatory with complaints of rib kb injury. 15:28 The patient has not experienced similar symptoms in the past. The patient has not kb recently seen a physician. 15:28 Details of fall: The patient fell from an upright position, while walking. Onset: The kb symptoms/episode began/occurred 5 day(s) ago. Associated injuries: The patient sustained injury to the chest, specifically the left lateral anterior chest, pain with breathing, pain with movement, tenderness. Severity of symptoms: At their worst the symptoms were moderate, in the emergency department the symptoms are unchanged. Pt reports he fell onto left ribs on Friday and has had pain since. . Historical: - Allergies: 13:13 No Known Allergies; ab2 - Home Meds: 13:13 None [Active]; ab2 - PMHx: 13:13 None; ab2 - PSHx: 13:13 None; ab2 - Immunization history:: Client reports receiving the 2nd dose of the Covid vaccine. - Social history:: Smoking status: Patient reports the use of cigarette tobacco products, denies chronic smoking, but will smoke occasionally. ROS: 15:25 Constitutional: Negative for fever, chills, and weight loss. kb 15:25 Cardiovascular: Positive for chest pain, of the left lateral anterior chest, Negative for edema, orthopnea, palpitations, paroxysmal nocturnal dyspnea. 15:25 All other systems are negative. Exam: 15:27 Constitutional: This is a well developed, well nourished patient who is awake, alert, kb and in no acute distress. Head/Face: Normocephalic, atraumatic. ENT: Moist Mucous membranes Cardiovascular: Regular rate and rhythm with a normal S1 and S2. No gallops, murmurs, or rubs. No pulse deficits. Respiratory: Respirations even and unlabored. No increased work of breathing. Talking in full sentences Abdomen/GI: Soft, non-tender. No distention Skin: Warm, dry with normal turgor. Normal color. MS/ Extremity: Pulses equal, no cyanosis. Neurovascular intact. Full, normal range of motion. Neuro: Awake and alert, GCS 15, oriented to person, place, time, and situation. Moves all extremities. Normal gait. Psych: Awake, alert, with orientation to person, place and time. Behavior, mood, and affect are within normal limits. 15:27 Chest/axilla: Palpation: tenderness, that is moderate, of the left lateral anterior chest, that totally reproduces the patient's complaints. Vital Signs: 13:11 BP 132 / 88; Pulse 73; Resp 17; Temp 97.6; Pulse Ox 98% ; Weight 83.91 kg; Height 5 ft. ab2 6 in. (167.64 cm); Pain 10/10; 14:25 BP 141 / 79; Pulse 76; Resp 16; Pulse Ox 99% on R/A; ab2 15:31 BP 127 / 79; Pulse 71; Resp 16; Pulse Ox 99% on R/A; ab2 13:11 Body Mass Index 29.86 (83.91 kg, 167.64 cm) ab2 MDM: 13:14 Patient medically screened. kb 15:08 Data reviewed: vital signs, nurses notes. Data interpreted: Pulse oximetry: on room air kb is 99 %. Interpretation: normal. Counseling: I had a detailed discussion with the patient and/or guardian regarding: the historical points, exam findings, and any diagnostic results supporting the discharge/admit diagnosis, lab results, the need for outpatient follow up, a family practitioner, to return to the emergency department if symptoms worsen or persist or if there are any questions or concerns that arise at home. 09/05 13:14 Order name: Chest Pa And Lat (2 Views) XRAY; Complete Time: 14:37 kb 09/05 13:14 Order name: Ribs Left XRAY; Complete Time: 15:08 kb Administered Medications: No medications were administered Disposition: 15:44 Co-signature as Attending Physician, Dayron Nelson MD I agree with the assessment and corine plan of care. Disposition Summary: 09/05/21 15:09 Discharge Ordered Location: Home kb Condition: Stable kb Diagnosis - Contusion of left front wall of thorax kb Followup: kb - With: Emergency Department - When: As needed - Reason: Worsening of condition Followup: kb - With: Private Physician - When: 2 - 3 days - Reason: Recheck today's complaints, Continuance of care, Re-evaluation by your physician Discharge Instructions: - Discharge Summary Sheet kb - Rib Fracture, [id number] kb Forms: - Medication Reconciliation Form kb - Thank You Letter kb - Antibiotic Education kb - Prescription Opioid Use kb Prescriptions: - Cyclobenzaprine 10 mg Oral Tablet - take 1 tablet by ORAL route every 8 hours As needed; 21 tablet; Refills: 0, kb Product Selection Permitted - Diclofenac Sodium 75 mg Oral tablet,delayed release (DR/EC) - take 1 tablet by ORAL route 2 times per day As needed; 30 tablet; Refills: 0, kb Product Selection Permitted Signatures: Dispatcher [employer] EDMargaret Plasencia, KHOI-C FRUIT LOADER MACHINE OPERATOR-Dayron Villarreal MD MD cha Bleininger, Alexis ab2
[2021-09-05 15:46] VITALS: TEMP 97.6
[2021-09-05 15:48] VITALS: O2SAT 99
[2021-09-05 15:49] VITALS: BP 127/79
== END 2021-09-05 15:32 | disposition home or self-care (01) ==
LOC: ER 12:50
DX: S20.212A Contusion of left front wall of thorax, initial encounter (principal); W19.XXXA Unspecified fall, initial encounter; F17.210 Nicotine dependence, cigarettes, uncomplicated
CPT/HCPCS: 71046; 99283

== ENCOUNTER 2022-01-23 16:19 | Emergency (ER) | payer SELFPAY ==
[2022-01-23 16:55] LABS: Absolute Lymphocytes (CBC) 2.1 K/uL (0.7-4.9); Hematocrit 39.8 % (39.6-49.0); Lymphocytes % 35.1 % (15.3-44.8); MPV 6.7 fL (7.6-11.3); RBC Red Blood Cell Count 4.04 M/uL (4.33-5.43)
[2022-01-23 17:09] LABS: Troponin High Sensitivity 3.2 pg/mL (<58.9)
[2022-01-23 17:10] LABS: Potassium 3.9 mmol/L (3.5-5.1)
--- NOTE | 2022-01-23 17:42 | RAD REPORT ---
EXAM DESCRIPTION: Negar Single View01/23/2022 5:24 pm CLINICAL HISTORY: Palpitations COMPARISON: 2020 FINDINGS: The lungs appear clear of acute infiltrate. The heart is normal size IMPRESSION: No acute abnormalities displayed
--- NOTE | 2022-01-23 19:08 | EDPHYS ---
Physician Documentation [facility] Name: Wilmer Dwyer Age: 46 yrs Sex: Male : 1975 Arrival Date: 01/23/2022 Time: 16:20 Bed 7 Private MD: ED Physician Dayron Nelson HPI: 01/23 19:19 This 46 yrs old Male presents to ER via Ambulatory with complaints of Chest kb Pain, Irregular Pulse, Near Syncope. 19:20 The patient presents with a history of irregular heart beat. Context: The symptoms kb occur while working. Onset: The symptoms/episode began/occurred today. Duration: The patient or guardian reports multiple episodes. Modifying factors: The symptoms are aggravated by nothing. The symptoms are alleviated by nothing. Associated signs and symptoms: Pertinent positives: chest pain. Severity of symptoms: At their worst the symptoms were mild in the emergency department the symptoms are unchanged. The patient has experienced a previous episode. The patient has not recently seen a physician. Pt reports intermittent palpitations that started after lunch with mild right sided chest pain. . Historical: - Allergies: 16:31 No Known Allergies; ap3 - Home Meds: 16:31 None [Active]; ap3 - PMHx: 16:31 None; ap3 - Immunization history:: Client reports having NOT received the Covid vaccine. - Social history:: Smoking status: Patient reports the use of cigarette tobacco products, denies chronic smoking, but will smoke occasionally, Patient uses alcohol, occasionally. ROS: 19:19 Constitutional: Negative for fever, chills, and weight loss. kb 19:19 Cardiovascular: Positive for chest pain, palpitations, Negative for edema, orthopnea, paroxysmal nocturnal dyspnea. 19:19 All other systems are negative. Exam: 19:19 Constitutional: This is a well developed, well nourished patient who is awake, alert, kb and in no acute distress. Head/Face: Normocephalic, atraumatic. ENT: Moist Mucous membranes Cardiovascular: Regular rate and rhythm with a normal S1 and S2. No gallops, murmurs, or rubs. No pulse deficits. Respiratory: Respirations even and unlabored. No increased work of breathing. Talking in full sentences Abdomen/GI: Soft, non-tender. No distention Skin: Warm, dry with normal turgor. Normal color. MS/ Extremity: Pulses equal, no cyanosis. Neurovascular intact. Full, normal range of motion. Neuro: Awake and alert, GCS 15, oriented to person, place, time, and situation. Moves all extremities. Normal gait. Psych: Awake, alert, with orientation to person, place and time. Behavior, mood, and affect are within normal limits. Vital Signs: 16:29 BP 127 / 90; Pulse 75; Resp 18; Temp 98.7; Pulse Ox 98% ; Weight 83.91 kg; Height 5 ft. ap3 6 in. (167.64 cm); 16:52 BP 134 / 96 Supine; Pulse 81; ss 16:52 BP 126 / 90 Sitting; Pulse 76; ss 16:52 BP 125 / 89 Standing; Pulse 85; ss 18:52 BP 119 / 89; Pulse 63; Resp 18; Pulse Ox 98% on R/A; ld1 18:56 BP 119 / 89; Pulse 76; Resp 16; Pulse Ox 100% on R/A; ss 16:29 Body Mass Index 29.86 (83.91 kg, 167.64 cm) ap3 MDM: 16:29 Patient medically screened. kb 19:19 Data reviewed: vital signs, nurses notes. Data interpreted: Pulse oximetry: on room air kb is 100 %. Interpretation: normal. Counseling: I had a detailed discussion with the patient and/or guardian regarding: the historical points, exam findings, and any diagnostic results supporting the discharge/admit diagnosis, lab results, radiology results, the need for outpatient follow up, a shake cutter, a family practitioner, to return to the emergency department if symptoms worsen or persist or if there are any questions or concerns that arise at home. 01/23 16:30 Order name: Basic Metabolic Panel; Complete Time: 17:18 kb 01/23 16:30 Order name: CBC with Diff; Complete Time: 16:58 kb 01/23 16:30 Order name: NT PRO-BNP; Complete Time: 17:18 kb 01/23 16:30 Order name: Troponin HS; Complete Time: 17:18 kb 01/23 16:30 Order name: XRAY Chest (1 view); Complete Time: 17:53 kb 01/23 16:30 Order name: EKG; Complete Time: 16:30 kb 01/23 16:30 Order name: Orthostatics; Complete Time: 16:52 kb 01/23 16:30 Order name: Cardiac monitoring; Complete Time: 16:43 kb 01/23 16:30 Order name: EKG - Nurse/Tech; Complete Time: 16:43 kb 01/23 16:30 Order name: IV Saline Lock; Complete Time: 16:43 kb 01/23 16:30 Order name: Labs collected and sent; Complete Time: 16:43 kb 01/23 16:30 Order name: O2 Per Protocol; Complete Time: 16:43 kb 01/23 16:30 Order name: O2 Sat Monitoring; Complete Time: 16:43 kb Administered Medications: No medications were administered Disposition Summary: 01/23/22 19:07 Discharge Ordered Location: Home kb Condition: Stable kb Diagnosis - Palpitations kb Followup: kb - With: Emergency Department - When: As needed - Reason: Worsening of condition Followup: kb - With: Private Physician - When: 2 - 3 days - Reason: Recheck today's complaints, Continuance of care, Re-evaluation by your physician Discharge Instructions: - Discharge Summary Sheet kb - Palpitations, [id number] kb Forms: - Medication Reconciliation Form kb - Thank You Letter kb - Antibiotic Education kb - Prescription Opioid Use kb Signatures: Dispatcher [employer] Margaret Fischer, HAND SANDER-C Belem Lewis, RN RN ap3
--- NOTE | 2022-01-23 19:08 | ER ---
Nurse's Notes [facility] Name: Wilmer Dwyer Age: 46 yrs Sex: Male : 1975 Arrival Date: 01/23/2022 Time: 16:20 Bed 7 Private MD: Diagnosis: Palpitations Presentation: 01/23 16:29 Chief complaint: Patient states: he started having chest pain after lunch, and ap3 presented to the ED clutching his chest. Patient states his chest was hurting on his right side of the chest, and he could feel palpitations. Coronavirus screen: At this time, the client does not indicate any symptoms associated with coronavirus-19. Ebola Screen: No symptoms or risks identified at this time. Initial Sepsis Screen: Does the patient meet any 2 criteria? No. Patient's initial sepsis screen is negative. Does the patient have a suspected source of infection? No. Patient's initial sepsis screen is negative. Risk Assessment: Do you want to hurt yourself or someone else? Patient reports no desire to harm self or others. Onset of symptoms was January 23, 2022 at 12:00. 16:29 Method Of Arrival: Ambulatory ap3 16:29 Acuity: JUAN RAMON 2 ap3 Triage Assessment: 16:32 General: Appears in no apparent distress. Behavior is calm, cooperative, appropriate ap3 for age. Pain: Complains of pain in chest Pain began suddenly, 4 hours ago. Is intermittent. Neuro: Level of Consciousness is awake, alert, obeys commands, Oriented to person, place, time, situation, Appropriate for age Reports a syncopal episode. Cardiovascular: Reports chest pain, palpitations. Cardiovascular: Patient's skin is warm and dry. Rhythm is regular. Respiratory: Airway is patent Respiratory effort is even, unlabored, Respiratory pattern is regular, symmetrical. Historical: - Allergies: 16:31 No Known Allergies; ap3 - Home Meds: 16:31 None [Active]; ap3 - PMHx: 16:31 None; ap3 - Immunization history:: Client reports having NOT received the Covid vaccine. - Social history:: Smoking status: Patient reports the use of cigarette tobacco products, denies chronic smoking, but will smoke occasionally, Patient uses alcohol, occasionally. Screenin:33 Abuse screen: Denies threats or abuse. Nutritional screening: No deficits noted. ap3 Tuberculosis screening: No symptoms or risk factors identified. Fall Risk None identified. Assessment: 16:44 General: Appears in no apparent distress. comfortable, Behavior is calm, cooperative, ss Denies fever, feeling ill, fatigue, chills, Pt states, "I've been having these same episodes about once a day/ once every other day for a few months, but today it's been happening a lot more.". Pain: Complains of pain in chest Pain currently is 0 out of 10 on a pain scale. at worst was 7 out of 10 on a pain scale. Neuro: Smith Agitation-Sedation Scale (RASS): 0 - Alert and Calm Level of Consciousness is awake, alert, obeys commands, Oriented to person, place, time, situation. Cardiovascular: Capillary refill < 3 seconds is brisk in bilateral fingers. Respiratory: Airway is patent Respiratory effort is even, unlabored, Respiratory pattern is regular, symmetrical. GI: Patient currently denies diarrhea, nausea, vomiting. : No signs and/or symptoms were reported regarding the genitourinary system. EENT: Nares are clear Oral mucosa is moist. Derm: Skin is intact, is healthy with good turgor, Skin is dry, Skin is pink, warm \\T\\ dry. normal. Musculoskeletal: Circulation, motion, and sensation intact. Range of motion: intact in all extremities, Swelling absent. 17:30 Reassessment: PT states that since he has been connected to monitor technician, he has had ss a "few episodes." No irregular cardiac activity is noted on monitor. 18:24 Reassessment: Patient appears in no apparent distress at this time. Patient and/or ss family updated on plan of care and expected duration. Pain level reassessed. Patient is alert, oriented x 3, equal unlabored respirations, skin warm/dry/pink. Patient denies pain at this time. Patient states feeling better. 18:38 Reassessment: awaiting disposition. ss Vital Signs: 16:29 BP 127 / 90; Pulse 75; Resp 18; Temp 98.7; Pulse Ox 98% ; Weight 83.91 kg; Height 5 ft. ap3 6 in. (167.64 cm); 16:52 BP 134 / 96 Supine; Pulse 81; ss 16:52 BP 126 / 90 Sitting; Pulse 76; ss 16:52 BP 125 / 89 Standing; Pulse 85; ss 18:52 BP 119 / 89; Pulse 63; Resp 18; Pulse Ox 98% on R/A; ld1 18:56 BP 119 / 89; Pulse 76; Resp 16; Pulse Ox 100% on R/A; ss 16:29 Body Mass Index 29.86 (83.91 kg, 167.64 cm) ap3 ED Course: 16:20 Patient arrived in ED. as 16:29 Margaret [facility]NP-C [facility]. kb 16:29 Dayron Nelson MD is Attending Physician. kb 16:31 Triage completed. ap3 16:33 Ammy Perera, SHYANN is Primary Nurse. ss 16:33 EKG done, by ED staff, reviewed by Margaret SOUSA. ap3 16:33 Patient maintains SpO2 saturation greater than 95% on room air. ap3 16:33 Arm band placed on right wrist. ap3 16:44 Patient has correct armband on for positive identification. Placed in gown. Bed in low ss position. Call light in reach. Side rails up X 1. Client placed on continuous cardiac and pulse oximetry monitoring. NIBP monitoring applied. Warm blanket given. 17:25 XRAY Chest (1 view) In Process Unspecified. EDMS 17:45 Inserted saline lock: 20 gauge in right antecubital area, using aseptic technique. ss Blood collected. 19:33 No provider procedures requiring assistance completed. IV discontinued, intact, as6 bleeding controlled, No redness/swelling at site. Pressure dressing applied. Administered Medications: No medications were administered Medication: 16:44 VIS not applicable for this client. ss Outcome: 19:07 Discharge ordered by . kb 19:33 Discharged to home ambulatory. as6 19:33 Condition: stable 19:33 Discharge instructions given to patient, Instructed on discharge instructions, follow up and referral plans. Demonstrated understanding of instructions, follow-up care. 19:34 Patient left the ED. as6 Signatures: Dispatcher [employer] EDMS Margaret Reza FNP-C FNP-Ckb Martinez, Amelia as Ammy Perera, RN RN ss Belem Palomino RN RN ap3 Natasha Stokes RN RN ld1 Cristian Pierce RN RN as6
[2022-01-23 19:38] VITALS: TEMP 98.7
[2022-01-23 19:41] VITALS: BP 119/89
[2022-01-23 19:42] VITALS: O2SAT 100
--- NOTE | 2022-01-24 12:18 | EKG ---
Test Date: 2022-01-23 Test Time: 16:25:04 Rn Telehealth: MEASUREMENT RESULTS: Intervals: Rate: 75 UT: 174 QRSD: 116 QT: 374 QTc: 417 Adger: P: 47 UT: 174 QRS: 34 T: 28 INTERPRETIVE STATEMENTS: Normal sinus rhythm Normal ECG No previous ECG available for comparison Electronically Signed On 01-24-22 12:17:00 CDT by Ruy Marc
== END 2022-01-23 19:34 | disposition home or self-care (01) ==
LOC: ER 16:19
DX: R00.2 Palpitations (principal); F17.210 Nicotine dependence, cigarettes, uncomplicated
CPT/HCPCS: 36415; 71045; 80048; 83880; 84484; 85025; 93005

== ENCOUNTER 2022-04-17 19:56 | Emergency (ER) | payer SELFPAY ==
--- OUTSIDE RECORDS SUMMARY | 2022-04-17 19:59 | XMS REPORT | Continuity of Care Document ---
:1975 Author Organization [facility] t Address [address] [place] [address] Care Team Providers Name Role Phone Asked, No Pcp Primary Care Physician Unavailable Pradeep Hoffman Attending Clinician Unavailable Andrea English Attending Clinician Unavailable Physician, No Primary or Family Admitting Clinician Unavaila [facility] Payers Payer Name Policy Type Policy Number Effective Date Expiration Date S ource Problems This patient has no known problems. Allergies, Adverse Reactions, Alerts Allergy Allergy Status Severity Reaction(s) Onset Inactive Treating Comm ents Source Name Type Date Date Clinician No Known DA Active U 2020-07 [facility]02 [place] [facility] 00:00: [address] No Known DA Active U [facility] 9 [facility] s 00:00: [address] No Known DA Active U 2014-07 [facility] 1-13 [place] [facility] 00:00: [address] Social History Social Habit Start Date Stop Date Quantity Comments Source History of tobacco Cigarette Smoker [facility] use [facility] Cigarettes smoked 2019-08-05 2019-08-[address] current (pack per 00:00:00 00:00:00 Hospita l day) - Reported Alcohol intake 2019-08-05 2019-08-05 Current drinker [facility]o dist 00:00:00 00:00:00 of alcohol Hospital (finding) Tobacco Comment 2019-08-05 2019-08-05 "only 1 pack on Meth odist 00:00:00 00:00:00 the weekends" Hospital Alcohol Comment 2019-08-05 2019-08-05 social drinker [facility]o dist 00:00:00 00:00:00 Hospital Tobacco use and 2019-08-05 2019-08-05 Never used [facility] exposure 00:00:00 00:00:00 Hospital Sex Assigned At [birth year] [facility] 00:00:00 00:00:00 Hospital Smoking Status Start Date Stop Date Source Current some day smoker 2019-08-05 00:00:00 [facility] odist [facility] Medications Ordered Filled Start Stop Current Ordering Indication Dosage Frequency Signature Comments Components Source Medication Medication Date Date Medication? Clinician (SIG) Name Name No known No No known Metho di medications 08-[address] 18:28: s Hospita [facility] l No known No Methodi medications [facility] Hospita l Procedures This patient has no known procedures. Plan of Care Planned Activity Planned Date Details Comments Source Future Scheduled 2022-03-30 HEPATITIS B VACCINES Met [facility] Test 07:28:50 (1 of 3 - 3-dose series) [code = HEPATITIS B VACCINES (1 of 3 - 3-dose series)] Future Scheduled 2022-03-30 COVID-19 VACCINE (#1) [facility] Test 07:28:50 [code = COVID-19 VACCINE (#1)] Future Scheduled 2022-03-30 Pneumococcal Vaccine: [facility] Test 07:28:50 Pediatrics (0 to 5 Years) and At-Risk Patients (6 to 64 Years) (1 - PCV) [code = Pneumococcal Vaccine: Pediatrics (0 to 5 Years) and At-Risk Patients (6 to 64 Years) (1 - PCV)] Future Scheduled 2022-03-30 Hepatitis C screening [facility] Test 07:28:50 (procedure) [code = 426693578] Future Scheduled 2022-03-30 INFLUENZA VACCINE Method is Hospital Test 07:28:50 [code = INFLUENZA VACCINE] Future Scheduled COVID-19 VACCINE (1) Met [facility] Test [code = COVID-19 VACCINE (1)] Future Scheduled Hepatitis C screening [facility] Test (procedure) [code = 698476590] Future Scheduled INFLUENZA VACCINE Method [facility] Test [code = INFLUENZA VACCINE] Encounters Start End Encounter Admission Attending Care Care Encounter Source Date/Time Date/Time Type Type Clinicians Facility Department ID 2021-04-28 2021-04-29 Inpatient EM Yue [facility] ER [id number] [facility] 23:48:00 04:24:00 Pradeep woodard Marcella Medeiros [facility] 2021-04-09 2021-04-09 Emergency EM Amador [facility] ER [id number] [facility] 00:28:00 03:30:00 Andrea 04 [facility] 2021-04-09 2021-04-09 Emergency EM Amador [facility] ER [id number] [facility] 00:28:00 03:30:00 Andrea 04 [facility] Results Test Description Test Time Test Comments [...] temporal changes in troponin lev elscharacteristic of MD. - CT ABD PELVIS [id number] 03:24:00 [facility] : 1975 [place]: [place]: [address] St: REG -- Name: CHANTAL HUBER [facility] : 1975 Age/S: 45/M [address] [facility] Unit #: [id number] Loc: [place], [place] [address] Phys: Pradeep Hoffman MD Acct: [id number] Dis Date: Status: REG ER PHONE #: [phone] Exam Date: 04/29/2021312 FAX #: [phone]: Periumbilical pain, concern for hernia CTDI: DLP: Automated exposure control, iterative reconstruction technique, and/oradjustment of mA and/or kV according to patient's size was utilized fooptimum radiation dose reduction. EXAMS: CPT CODE: [id number] CT ABD PELVIS W/CONT 03920 EXAM: - CT ABD PELVIS W/CONT HISTORY: Abdominal pain. TECHNIQUE: Axial tomograms through the abdomen and pelvis wereobtained after intravenous contrast. Coronal and sagittal reformatted images are provided. This examwas performed according to our departmental dose- optimization program, which includes automated exposure control, adjustment of the mA and/or kV according to patient size and/or use of iterative reconst ruction technique. COMPARISON: August 15, 2015. FINDINGS: The visualized lung bases are clear. There is fatty infiltration of the liver. The liver, spleen, pancreas, adrenal glands and kidneys demonstrate no significant abnormalities. Some thickening of the wall of the gastric antrum could be due toperistalsis normal variant. The appendix has a normal appearance. The bowel is unremarkable. There is no adenopathy or free fluid. There is no evidence of abdominal wall hernia. There is no acute osseous abnormality. IMPRESSION: No acute abnormality. Other findings as above. PAGE 1 Signed Report (CONTINUED) [place]: [facility] St: REG ----- Name: CHANTAL HUBER LUIS [facility] : 1975 Age/S: 45/M [address] Unit #: [id number] Loc: [place], [place] [address] Phys: Pradeep Hoffman MD Acct: [id number] Dis Date: Status: REG ER PHONE #: [phone] Exam Date: 04/29/2021 0313 FAX #: [phone] Reason: Periumbilical pain, concern for hernia CTDI: DLP: Automated exposure control, iterative reconstruction technique, and/oradjustment of mA and/or kV according to patient's size was utilized fooptimum radiation dose reduction. EXAMS: CPT CODE: [id number] CT ABD PELVIS W/CONT 17698 <Continued> at 0324 Reported and signed by: ADRIANA MOULTON MD Facility ACR Accreditation for CT - February 2012 CC: Pradeep Hoffamn MD Technologist: ROGER FRANCIS RT(R) Transcribed Date/Time/By: 04/29/2021 (0324) : By: [email or web address] Orig Print D/T: S: 04/29/2021 (0327) PAGE 2 Signed ReportPROTHROMBIN [id number] 03:16:00 Test Item Value Reference Interpretation Comments Range PROTHROMBIN TIME 10.3 SECONDS 9.1-12.0 N PATIENT (test code = PTP) INTERNATIONAL 1.05 0.93-1.2 N Recommended Th erapeutic NORMAL RATIO (test PT Ratios For Oral code = INR) AnticoagualantT herapy. CONDITION INT'L NORMALIZED PT R --------- ------ Prophylaxis of venous thrombosis 2.0 - 3.0in high risk medic al or surgicalpatient s, treatment of venousthrombosi s, prevention of e mbolism. Prevention of r ecurrent embolism, 3.0 - 4.5or treatment of pa tients with mechanical prosthetic heart valves. IS THE PATIENT ON ANY ANTICOAGULANTS? NTHROMBOPLASTIN TIME [id number] 03:16:00 Test Item Value Reference Range Interpretation Comments THROMBOPLASTIN TIME PARTIAL 27.0 SECONDS 23.0-32.0 N (test code = PTT) IS THE PATIENT ON ANY ANTICOAGULANTS? NUA RFLX MICR CULT IF [id number] 03:01:00 Test Item Value Reference Range Interpretation [...] URINESPECIMEN DESCRIPTION: CMCIndication for culture: Flank PainUA [id number] 03:01:00 Test Item Value Reference Range Interpretation Comments UA RBC (test code = RBCU) 0-2 0-5 UA EPITHELIAL CELLS (test code = EPIU) 0-2 0-10 UA MUCUS (test code = MUCU) OCC NONE-FEW SOURCE: URINESPECIMEN DESCRIPTION: CMCIndication for culture: Flank Pain Coronavirus 2019 nCoV [id number] 01:45:00 Test Item Value Reference Interpretation Comments [...] ptive Negative result s do not preclude QSQH-EfV-1pqcll tion and should not be u sed as the sole basis forpatient kaykay gement decisions. Nega tive must be treated aspr esumptive and, if inconsi stent with clinical s igns andsymptoms or necessary for patient man agement, should betested with an alternative mol ecular assay. The ID N OW COVID-19 test i s intended for us e by medicalprofessi onals or trained operato rs who are proficient inperforming te sts using the ID NOW Inst rument. The ID NOWCOVID -19 test is only used un fernie the Food and DrugAdminstrati on's Emergency Use Authorization. LOT # [id number].DATE 06/09/21PROCEDURAL CONTROL ACCEPTABLE Y/N YBASIC METABOLIC [id number] 01:39:00 Test Item Value Reference Range Interpretation [...] Kidney damage w/normal or inc reased GFR >90Stage 2: Kidney damage w /mild decrease in GFR 60 - 89Stage 3: Mode rate decrease in GFR 30 - 59Stage 4: Narcisa re decrease in GFR 15 - 29Stage 5: Kidn ey failure < 15 (o r dialysis) CREATININE (test code 1.1 mg/dL 0.6-1.0 H = CREAT) CALCIUM (test code = 8.4 mg/dL 7.8-10.9 N CA) HEPATIC FUNCTION [id number] 01:39:00 Test Item Value Reference Range Interpretation [...] 45-117 N TOTAL (test code = ALKP) [id number] 01:39:00 Test Item Value Reference Range Interpretation Comments LIPASE (test code = 102 U/L 73-393 N Reportin g units: LIP) International U nits/L CBC W/AUTO [id number] 01:09:00 Test Item Value Reference Range Interpretation [...] = 0.00 K/mm3 0.00-0.20 N NRBC#) - CHEST 1 [id number] 01:06:00 [facility] : 1975 Sex: MFAX: Pradeep Hoffman [phone] Camps: ER St: REG Name: CHANTAL HUBER [facility] : 1975 Age/S: 45/M [address] [facility] Unit #: [id number] Loc: [place], [place] [address] Phys: Pradeep Hoffman MD Acct: [id number] Dis Date: Status: REG ER PHONE #: [phone] Exam Date: 04/29/20103 FAX #: [phone] Reason: Abdominal pain EXAMS: CPT CODE: [id number] XR CHEST 1 V 39962 EXAM: - XR CHEST 1 V HISTORY: Abdominal pain. COMPARISON: None available time of interpretation. FINDINGS: Single AP view of the chest is provided. Heart size and vascularity are within normal limits. There is no evidence of a focal consolidation. There is no pleural effusion or pneumothorax. There is no definite acute osseous abnormality. IMPRESSION: No radiographic evidence of acute cardiopulmonary process. at 0106 Reported and signed by: ADRIANA MOULTON MD CC: Pradeep Hoffman MD Technologist: Nadeen Caceres, RT(R)(ARRT) Transcribed Date/Time/By: 04/29/2021 (0106) :[email or web address] Orig Print D/T: S: 04/29/2021 (0110) Automated exposure control, iterative reconstruction technique, and/oradjustment of mA and/or kV accordingto patient's size was utilizedfor optimum radiation dose reduction. PAGE 1 Signed ReportTROPONIN-I 2021-04-09 03:12:00 Test Item Value Reference Range Interpretation Comments TROPONIN-I (test < 0.017 NG/ML 0.000-0.060 N The lower limit for code = TROPI) Trop-I has bee n changed from <0.04. - T he use of serial sampl ing and testing protoco l is a recommended pra ctice.- An elevated tro ponin level alone is often not sufficient for diagnosis of my ocardial infarction.Resu lts of this assay meth od may be falsely depr essed orelevated if p atient is taking high doses of Biotin. BASIC METABOLIC [id number] 01:31:00 Test Item Value Reference Range Interpretation [...] code = 8.4 MG/DL 8.7-10.5 L CA) [id number] 01:31:00 Test Item Value Reference Range Interpretation Comments TROPONIN-I (test < 0.017 NG/ML 0.000-0.060 N The lower limit for code = TROPI) Trop-I has bee n changed from <0.04. - T he use of serial sampl ing and testing protoco l is a recommended pra ctice.- An elevated tro ponin level alone is often not sufficient for diagnosis of my ocardial infarction.Resu lts of this assay meth od may be falsely depr essed orelevated if p atient is taking high doses of Biotin. CBC W/AUTO [id number] 01:22:00 Test Item Value Reference Range Interpretation [...] 0.0-0.2 N NRBC#) - XR CHEST 2 [id number] 01:03:00 [facility] : 1975 Sex: M Patient Name: CHANTAL HUBER Unit No: [id number] EXAMS: CPT CODE: [id number] XR CHEST 2 V 16561 Reason: cp/palp Exam: Chest 2 views Location: H 12 History: cp/palp Comparison: None. Findings: The lungs are clear. No infiltrate or effusion is seen. The pulmonary vasculature is normal. The heart sizeis normal. The mediastinal silhouette is unremarkable. The bony thorax is intact. Impression: No acute disease. at 0103 Reported and signed by: Pardeep Chapman MD CC: Andrea English DOLaxmi DEL ANGEL Technologist: Mike LOO Trscrpt Dt/ (102)tBONIFACIO Orig Print D/T: S: 04/09/2021 (0106) [facility] NAME: CHANTAL HUBER [address] PHYS: ANDREW.Ricco - [place] [address] : 1975 AGE: 45 SEX: M LOC: JOAN PHONE #: [phone] EXAM DATE: 04/09/2021 STATUS: PRE ER FAX #: RAD NO: DC Dt: PAGE 1 Signed Report- XR CHEST 2 [id number] 01:03:00 [facility] CHYNA N[facility]ER [facility] : 1975 Sex: M Patient Name: CHANTAL HUBER Unit No: [id number] EXAMS: CPT CODE: [id number] XR CHEST 2 V 64678 Reason: cp/palp Exam: Chest 2 views Location: [...] DEL ANGEL Technologist: Geno LOO Trscrpt Dt/ (0103)Jessica Orig Print D/T: S: 04/09/2021 (0106) [facility] N MADHAV: CHANTAL HUBER [address] PHYS: [email or web address] - [place] [address] : 1975 AGE: 45 SEX: M LOC: JOAN PHONE #: [phone] EXAM DATE: 04/09/2021 STATUS: DEP ER FAX #: RAD NO: DC Dt: PAGE 1 Signed Report- XR ELBOW 3+V [id number] 16:13:00 [facility] : 1975 Sex: MFAX: Aliza Cash [phone] Camps: ER St: [facility] FAX: Lloyd Cash DO [phone] FAX: Analilia Curiel [phone] Name: CHANTAL HUBER [facility] : 1975 Age/S: 40/M [address] Unit #: [id number] Loc: [place], [place] [address] Phys: Aliza Cash Acct: [id number] Dis Date: Status: K PHONE #: [phone] Exam Date: 04/25/2016 1600 FAX #: [phone] Reason: PAIN/CONTUSION EXAMS: CPT CODE: [id number] XR ELBOW 3+[place] [address] LEFT ELBOW RADIOGRAPHS INDICATION:PAIN/CONTUSION, COMPARISON: NONE. FINDINGS: AP, oblique and lateral radiographs of the left elbow are obtained. No acute fracture or dislocation is seen. No evidence of a joint effusion. The joint spaces appear intact. IMPRESSION: No acute osseous abnormality. Electronically Signed by Yakelin Estrada 04/25/2016 at 1613 Reported and signed by: Yakelin Denney MD CC: Aliza Cash; Lloyd Huizar; Analilia DEL ANGEL Technologist: IVON MYERS RT (R) ARRT Transcribed Date/Time/By: 04/25/2016 (8536) :Douglas.[email or web address] Orig Print D/T: S: 04/25/2016 (5816) Automated exposure control, iterative re construction technique, and/oradjustment of mA and/or kV according to patient's size was utilizedforoptimum radiation dose reduction. PAGE 1 Signed Report- XR CHEST 1 [id number] 21:48:00 [facility] : 1975 Sex: M FAX: Jonah Apple MD [phone] Camps: AUBREY St: UNK Name: CHANTAL HUBER LUIS [facility] : 1975 Age/S: 39/M [address] Unit #: [id number] Loc: [place], [place] [address] Phys: Jonah Apple MD Acct: [id number] Dis Date: Status: UNK PHONE #: [phone] Exam Date: 03/15/20152141 FAX #: [phone] Reason: sob EXAMS: CPT CODE: [id number] XR CHEST 1 V 59434 HISTORY: 39M. Shortness of breath. Technique: Chest single view. Comparison none. FINDINGS: The cardiomediastinal borders are within normal limits. No acute lung or pleural disease is seen. The osseous structures are unremarkable. IMPRESSION: No acute abnormality identified. Read By: Anastasiya Morel - 03/15/2015 9:48:00 PM Approved By: Anastasiya Khoury 03/15/2015 9:48:00 PM at 2148 Reported and signed by: Anastsaiya Morel MD CC: Jonah Apple MD Technologist: IVON MYERS (R) ARRT Transcribed Date/Time/By: 03/15/2015 (2147) :RAD.VR Orig Print D/T:S: 03/15/2015 (2147) Automated exposure control, iterative reconstruction technique, and/oradjustment of mA and/or kV according to patient's size was utilizedfor optimum radiation dose reduction. PAGE 1 Signed Report
--- NOTE | 2022-04-17 20:44 | RAD REPORT ---
EXAM DESCRIPTION: RAD - Chest Single View - 04/17/2022 8:33 pm CLINICAL HISTORY: CHEST PAIN Chest pain. COMPARISON: Chest Single View dated 01/23/2022; Chest Pa And Lat (2 Views) dated 09/05/2021 FINDINGS: Portable technique limits examination quality. The lungs are grossly clear. The heart is normal in size. No displaced fractures. IMPRESSION: No acute intrathoracic process suspected.
[2022-04-17] MEDS ORDERED: LORazepam 2 MG/ML VIAL ONE (22:18)
[2022-04-17 22:58] LABS: Absolute Lymphocytes (CBC) 2.2 K/uL (0.7-4.9); Hematocrit 42.1 % (39.6-49.0); Lymphocytes % 25.5 % (15.3-44.8); MCV 96.6 fL (80-100); MPV 6.9 fL (7.6-11.3); RBC Red Blood Cell Count 4.36 M/uL (4.33-5.43)
[2022-04-17 23:25] LABS: Magnesium 2.1 mg/dL (1.8-2.4); Potassium 3.3 mmol/L (3.5-5.1); Troponin High Sensitivity 4.8 pg/mL (<58.9)
[2022-04-17 23:49] LABS: Barbiturates NEGATIVE (NEGATIVE); Benzodiazepines NEGATIVE (NEGATIVE); Cocaine NEGATIVE (NEGATIVE); METHAMPHETAM NEGATIVE (NEGATIVE); Methadone NEGATIVE (NEGATIVE); Opiates NEGATIVE (NEGATIVE); Phencyclidine NEGATIVE (NEGATIVE); THC Cannibis NEGATIVE (NEGATIVE)
[2022-04-17 23:50] LABS: Urine Blood Negative (Negative); Urine Glucose Negative (Negative); Urine Protein Negative (Negative); Urine pH 5.5 (5.0-7.0)
[2022-04-18] MEDS ORDERED: POTASSIUM 25 MEQ EFFERV TAB ONE
--- NOTE | 2022-04-18 00:48 | ER ---
Nurse's Notes [facility] Name: Wilmer Dwyer Age: 46 yrs Sex: Male : 1975 Arrival Date: 04/17/2022 Time: 19:58 Bed 30 Private MD: Diagnosis: Palpitations Presentation: 04/17 20:10 Chief complaint: Patient states: C/O heart beating fast/skipping a beat today at 1500. ld1 Denies pain. Coronavirus screen: At this time, the client does not indicate any symptoms associated with coronavirus-19. Ebola Screen: No symptoms or risks identified at this time. Initial Sepsis Screen: Does the patient meet any 2 criteria? No. Patient's initial sepsis screen is negative. Does the patient have a suspected source of infection? No. Patient's initial sepsis screen is negative. Risk Assessment: Do you want to hurt yourself or someone else? Patient reports no desire to harm self or others. Onset of symptoms was April 17, 2022. 20:10 Method Of Arrival: Ambulatory ld1 20:10 Acuity: JUAN RAMON 3 ld1 Triage Assessment: 20:11 General: Appears in no apparent distress. comfortable, Behavior is calm, cooperative, ld1 appropriate for age. Pain: Denies pain. EENT: No signs and/or symptoms were reported regarding the EENT system. Neuro: Level of Consciousness is awake, alert, obeys commands, Oriented to person, place, time, situation, Appropriate for age. Cardiovascular: Reports lightheadedness, Capillary refill < 3 seconds Patient's skin is warm and dry. Respiratory: Airway is patent Respiratory effort is even, unlabored. GI: Abdomen is round non-distended. : No signs and/or symptoms were reported regarding the genitourinary system. Derm: No signs and/or symptoms reported regarding the dermatologic system. Musculoskeletal: No signs and/or symptoms reported regarding the musculoskeletal system. Historical: - Allergies: 20:11 No Known Allergies; ld1 - Home Meds: 20:11 None [Active]; ld1 - PMHx: 20:11 None; ld1 - PSHx: 20:11 None; ld1 - Immunization history:: Adult Immunizations up to date, Client reports receiving the 2nd dose of the Covid vaccine. - Social history:: Smoking status: Patient reports the use of cigarette tobacco products, denies chronic smoking, but will smoke occasionally, Patient uses alcohol, occasionally. Screenin:15 Abuse screen: Denies threats or abuse. Denies injuries from another. Nutritional ha1 screening: No deficits noted. Tuberculosis screening: No symptoms or risk factors identified. Fall Risk None identified. Assessment: 22:15 General: Appears comfortable, Behavior is calm, cooperative. Pain: Denies pain. Neuro: ha1 Level of Consciousness is awake, alert, obeys commands, Oriented to person, place, time, situation. Cardiovascular: Reports palpitations, Heart tones S1 S2 present Capillary refill < 3 seconds Patient's skin is warm and dry. Rhythm is sinus rhythm. Respiratory: Airway is patent Trachea midline Respiratory effort is even, unlabored, Respiratory pattern is regular, symmetrical. GI: No signs and/or symptoms were reported involving the gastrointestinal system. Abdomen is non-distended, obese. : No signs and/or symptoms were reported regarding the genitourinary system. EENT: No signs and/or symptoms were reported regarding the EENT system. Derm: Skin is healthy with good turgor. 23:52 General: Appears comfortable, Behavior is calm, cooperative. Neuro: Level of kd3 Consciousness is awake, alert, obeys commands, Oriented to person, place, time, situation. Cardiovascular: Patient's skin is warm and dry. Rhythm is sinus rhythm. Respiratory: Airway is patent Trachea midline Respiratory effort is even, unlabored, Respiratory pattern is regular, symmetrical. 23:57 Cardiovascular: Rhythm is with occasional PVC's. kd3 04/18 00:57 Reassessment: Patient and/or family updated on plan of care and expected duration. Pain ha1 level reassessed. Patient is alert, oriented x 3, equal unlabored respirations, skin warm/dry/pink. Vital Signs: 04/17 20:10 BP 133 / 87; Pulse 78; Resp 18; Temp 98.4(TE); Pulse Ox 98% on R/A; Weight 90.26 kg; ld1 Height 5 ft. 6 in. (167.64 cm); Pain 0/10; 22:15 BP 130 / 93; Pulse 72; Resp 19 S; Pulse Ox 98% on R/A; ha1 23:15 BP 138 / 84; Pulse 72; Resp 17 S; Pulse Ox 98% on R/A; ha1 23:52 BP 123 / 89; Pulse 73; Resp 16; Pulse Ox 97% ; kd3 04/18 00:40 BP 122 / 98; Pulse 67; Resp 16; Pulse Ox 98% on R/A; ha1 00:57 BP 127 / 88; Pulse 74; Resp 17 S; Pulse Ox 98% on R/A; ha1 04/17 20:10 Body Mass Index 32.12 (90.26 kg, 167.64 cm) ld1 ED Course: 04/17 19:58 Patient arrived in ED. ja2 20:11 Triage completed. ld1 20:11 Arm band placed on right wrist. EKG completed in triage. Results shown to MD. ld1 20:17 EKG done, by ED staff, reviewed by Dayron DEL ANGEL. wm 20:46 Dayron Pillai PA is PHCP. cp 20:46 Miki Medina DO is Attending Physician. cp 22:03 Nuha Pina, SHYANN is Primary Nurse. ha1 22:36 Bed in low position. Call light in reach. Side rails up X 1. Client placed on wm continuous cardiac and pulse oximetry monitoring. NIBP monitoring applied. telemetry monitor on. 22:36 Initial lab(s) drawn, by ak, sent to lab. Inserted saline lock: 20 gauge in right wm antecubital area, using aseptic technique. Blood collected. 22:38 Basic Metabolic Panel Sent. 22:38 CBC with Diff Sent. 22:38 Troponin HS Sent. 22:39 D-Dimer Sent. 23:32 UDS Sent. ha1 04/18 00:47 Ruy Marc MD is Referral Physician. cp 00:58 No provider procedures requiring assistance completed. ha1 00:59 IV discontinued, intact, bleeding controlled, No redness/swelling at site. Pressure ha1 dressing applied. Administered Medications: 04/17 22:45 Drug: Ativan (LORazepam) 0.5 mg Route: IVP; Site: right antecubital; ha1 23:15 Follow up: Response: No adverse reaction; RASS: Alert and Calm (0) ha1 23:52 Drug: Potassium Effervescent Tablet 50 mEq Route: PO; kd3 04/18 00:59 Follow up: Response: No adverse reaction ha1 Medication: 04/17 23:53 VIS not applicable for this client. kd3 Outcome: 04/18 00:47 Discharge ordered by . cp 00:58 Discharged to home ambulatory. ha1 00:58 Condition: stable 00:58 Discharge instructions given to patient, Instructed on discharge instructions, follow up and referral plans. Demonstrated understanding of instructions, follow-up care. 00:59 Patient left the ED. ha1 Signatures: Dayron Pillai PA PA cp Dibbern, Lauren, SHYANN RN ld1 Sarahy Fabian Julia Berumen2 Katerine Mohan RN RN kd3 Nuha Pina RN RN ha1 Corrections: (The following items were deleted from the chart) 04/17 22:52 22:39 MAGNESIUM+C.LAB.BRZ drawn and sent. EDMS 23:35 23:33 BP 138 / 84; Pulse 72bpm; Resp 17bpm; Spontaneous; Pulse Ox 98% RA; ha1 ha1
--- NOTE | 2022-04-18 00:48 | EDPHYS ---
Physician Documentation [facility] Name: Wilmer Dwyer Age: 46 yrs Sex: Male : 1975 Arrival Date: 04/17/2022 Time: 19:58 Bed 30 Private MD: ED Physician Miki Medina HPI: 04/17 21:20 This 46 yrs old Male presents to ER via Ambulatory with complaints of cp Heartbeat Feels Irregular. 21:20 The patient presents with a history of irregular heart beat, heart skipping beats. cp 21:20 Context: The symptoms occur at rest. Onset: The symptoms/episode began/occurred today. cp 21:20 Duration: The patient or guardian reports multiple episodes, that wax and wane. cp 21:20 Associated signs and symptoms: Pertinent negatives: chest pain, cough, fever, cp lightheadedness, SOB, syncope, vomiting. Severity of symptoms: in the emergency department the symptoms are unchanged despite home interventions. Historical: - Allergies: 20:11 No Known Allergies; ld1 - Home Meds: 20:11 None [Active]; ld1 - PMHx: 20:11 None; ld1 - PSHx: 20:11 None; ld1 - Immunization history:: Adult Immunizations up to date, Client reports receiving the 2nd dose of the Covid vaccine. - Social history:: Smoking status: Patient reports the use of cigarette tobacco products, denies chronic smoking, but will smoke occasionally, Patient uses alcohol, occasionally. ROS: 21:25 Constitutional: Negative for body aches, chills, fever, poor PO intake. cp 21:25 Eyes: Negative for injury, pain, redness, and discharge. cp 21:25 Cardiovascular: Positive for palpitations, Negative for chest pain, edema. 21:25 Respiratory: Negative for cough, shortness of breath, wheezing. 21:25 Abdomen/GI: Negative for abdominal pain, nausea, vomiting, and diarrhea, constipation. 21:25 Back: Negative for pain at rest, pain with movement. cp 21:25 Neuro: Negative for altered mental status, dizziness, headache, numbness, syncope, near syncope, weakness. 21:25 All other systems are negative. cp Exam: 20:22 ECG was reviewed by the Attending Physician. cp 21:30 Constitutional: The patient appears in no acute distress, alert, awake, cp non-diaphoretic, non-toxic, well developed, well nourished, anxious. 21:30 Head/Face: Normocephalic, atraumatic. cp 21:30 Eyes: Periorbital structures: appear normal, Pupils: equal, round, and reactive to light and accomodation, Conjunctiva: normal, no exudate, no injection, Sclera: no appreciated abnormality, Lids and lashes: appear normal, bilaterally. 21:30 ENT: External ear(s): are unremarkable, Nose: is normal, Mouth: Lips: moist, Oral mucosa: pink and intact, moist, Posterior pharynx: Airway: no evidence of obstruction, patent, swelling, is not appreciated, erythema, is not appreciated, exudate, is not appreciated. 21:30 Neck: ROM/movement: is normal, is supple, without pain, no range of motions limitations, no nuchal rigidity. 21:30 Chest/axilla: Inspection: normal, Palpation: is normal, no crepitus, no tenderness. 21:30 Cardiovascular: Rate: normal, Rhythm: regular, Heart sounds: murmur, not appreciated, cp Edema: is not appreciated, JVD: is not appreciated. 21:30 Respiratory: the patient does not display signs of respiratory distress, Respirations: normal, no use of accessory muscles, no retractions, labored breathing, is not present, Breath sounds: are clear throughout, no decreased breath sounds, no stridor, no wheezing. 21:30 Abdomen/GI: Inspection: abdomen appears normal, Bowel sounds: active, all quadrants, Palpation: abdomen is soft and non-tender, in all quadrants. 21:30 Back: pain, is absent, ROM is normal. 21:30 Neuro: Orientation: to person, place \T\ time. Mentation: is normal, Motor: moves all cp fours, strength is normal, Sensation: is normal. Vital Signs: 20:10 BP 133 / 87; Pulse 78; Resp 18; Temp 98.4(TE); Pulse Ox 98% on R/A; Weight 90.26 kg; ld1 Height 5 ft. 6 in. (167.64 cm); Pain 0/10; 22:15 BP 130 / 93; Pulse 72; Resp 19 S; Pulse Ox 98% on R/A; ha1 23:15 BP 138 / 84; Pulse 72; Resp 17 S; Pulse Ox 98% on R/A; ha1 23:52 BP 123 / 89; Pulse 73; Resp 16; Pulse Ox 97% ; kd3 04/18 00:40 BP 122 / 98; Pulse 67; Resp 16; Pulse Ox 98% on R/A; ha1 00:57 BP 127 / 88; Pulse 74; Resp 17 S; Pulse Ox 98% on R/A; ha1 04/17 20:10 Body Mass Index 32.12 (90.26 kg, 167.64 cm) 1 MDM: 04/17 20:54 Patient medically screened. 04/18 00:47 Data reviewed: vital signs, nurses notes, lab test result(s), EKG, radiologic studies, cp plain films. 00:47 Test interpretation: by ED physician or midlevel provider: ECG, plain radiologic cp studies. Counseling: I had a detailed discussion with the patient and/or guardian regarding: the historical points, exam findings, and any diagnostic results supporting the discharge/admit diagnosis, lab results, radiology results, the need for outpatient follow up, a community advocate, to return to the emergency department if symptoms worsen or persist or if there are any questions or concerns that arise at home. Response to treatment: the patient's symptoms have markedly improved after treatment, and as a result, I will discharge patient. 04/17 20:12 Order name: Basic Metabolic Panel; Complete Time: 23:27 [facility] 04/17 23:27 Interpretation: Normal except: K 3.3; GFR 89. 04/17 20:12 Order name: CBC with Diff; Complete Time: 23:27 [facility] 04/17 23:27 Interpretation: Normal except: MPV 6.9. 04/17 20:12 Order name: Troponin HS; Complete Time: 23:27 [facility] 04/17 23:28 Interpretation: Troponin HS 4.8; Reviewed. 04/17 21:27 Order name: UDS; Complete Time: 00:46 04/18 00:46 Interpretation: Reviewed. 04/17 21:27 Order name: D-Dimer; Complete Time: 23:27 04/17 23:28 Interpretation: D-DIMER 500; Reviewed. 04/17 20:12 Order name: XRAY Chest (1 view) [facility] 04/17 20:12 Order name: EKG; Complete Time: 20:13 ld1 04/17 20:12 Order name: Cardiac monitoring; Complete Time: 22:24 ld1 04/17 20:46 Order name: RAD; Complete Time: 23:27 EDMS 04/17 23:27 Interpretation: Report reviewed. cp 04/17 22:53 Order name: Magnesium; Complete Time: 23:27 EDMS 04/17 23:28 Interpretation: MG 2.1; Reviewed. cp 04/17 23:51 Order name: Urine Dipstick-Ancillary; Complete Time: 00:46 EDMS 04/17 20:12 Order name: EKG - Nurse/Tech; Complete Time: 20:12 ld1 04/17 20:12 Order name: IV Saline Lock; Complete Time: 22:38 1 04/17 20:12 Order name: Labs collected and sent; Complete Time: 22:38 1 04/17 20:12 Order name: O2 Per Protocol; Complete Time: 22:25 ld1 04/17 20:12 Order name: O2 Sat Monitoring; Complete Time: 22:25 [facility] 04/17 23:45 Order name: Urine Dipstick-Ancillary (obtain specimen); Complete Time: 23:52 cp EC/21 20:22 Rate is 74 beats/min. Rhythm is regular. PA interval is normal. QRS interval is cp prolonged at 114 msec. QT interval is normal. T waves are Inverted in leads III, aVR. Interpreted by me. Reviewed by me. Administered Medications: 22:45 Drug: Ativan (LORazepam) 0.5 mg Route: IVP; Site: right antecubital; ha1 23:15 Follow up: Response: No adverse reaction; RASS: Alert and Calm (0) ha1 23:52 Drug: Potassium Effervescent Tablet 50 mEq Route: PO; kd3 04/18 00:59 Follow up: Response: No adverse reaction ha1 Disposition: : Co-signature as Attending Physician, Miki MARQUEZ was immediately available on-site ms3 in the Emergency Department for consultation in the care of the patient.. Disposition Summary: 04/18/22 00:47 Discharge Ordered Location: Home cp Problem: new cp Symptoms: have improved cp Condition: Stable cp Diagnosis - Palpitations cp Followup: cp - With: Ruy Marc MD - When: 2 - 3 days - Reason: Recheck today's complaints Discharge Instructions: - Discharge Summary Sheet cp - Palpitations cp - Aspirin and Your Heart cp Forms: - Medication Reconciliation Form cp - Thank You Letter cp - Antibiotic Education cp - Prescription Opioid Use cp Signatures: Dispatcher [employer] EDMS Dayron Pillai PA PA cp Miki Medina DO DO ms3 Natasha Stokes RN RN ld1 Katerine Mohan RN RN kd3 Nuha Pina RN RN ha1 Corrections: (The following items were deleted from the chart) 04/17 22:52 21:27 MAGNESIUM+[id number].LAB.BRZ ordered. EDMS EDMS 04/18 23:39 04/17 21:25 All other systems are negative, cp cp
--- NOTE | 2022-04-18 13:38 | EKG ---
Test Date: 2022-04-17 Test Time: 20:17:40 Regional Recruiter: LAKISHA MEASUREMENT RESULTS: Intervals: Rate: 74 CO: 176 QRSD: 114 QT: 374 QTc: 415 Gary: P: 39 CO: 176 QRS: 63 T: 10 INTERPRETIVE STATEMENTS: Normal sinus rhythm Incomplete right bundle branch block Borderline ECG Compared to ECG 01/23/2022 16:25:04 Incomplete right bundle-branch block now present Electronically Signed On 04-18-22 13:36:29 CDT by Ruy Marc
[2022-04-19 19:18] VITALS: O2SAT 98
[2022-04-19 19:36] VITALS: BP 133/87; TEMP 98.4
== END 2022-04-18 00:59 | disposition home or self-care (01) ==
LOC: ER 19:56
DX: R00.2 Palpitations (principal); F17.210 Nicotine dependence, cigarettes, uncomplicated
CPT/HCPCS: 36415; 71045; 80048; 80307; 81003; 83735; 84484; 85025; 85379; 93005; 96374; 99284